=== PATIENT | male | born 1995 | race Caucasian/White ===

== ENCOUNTER 2017-02-03 00:11 | Emergency (ER) | payer OTHER ==
[2017-02-03] MEDS ORDERED: NO HOME MEDICATION XX (01:13)
[2017-02-03] MEDS ORDERED: GUAIFENESIN-COD10 ML PO (01:24)
== END 2017-02-03 01:48 ==
LOC: EDMED 00:11
DX: J06.9 Acute upper respiratory infection, unspecified (principal); F17.200 Nicotine dependence, unspecified, uncomplicated